=== PATIENT | female | born 2005 | race Asian ===

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

== ENCOUNTER 2025-03-15 13:44 | Outpatient (CLI) | payer OTHER, SELFPAY ==
--- NOTE | 2025-03-15 13:15 | DI.RAD_ITS ---
Exam(s) XR FINGER LT INDEX EXAM: XR FINGER LT INDEX CLINICAL HISTORY: L INDEX FINGER NODULE. TECHNIQUE: 2D digital imaging was performed. Three views. COMPARISON: None. FINDINGS: BONES: No acute fracture is present. No bony destructive lesion is seen. JOINTS: No dislocation present. The joint spaces are maintained. SOFT TISSUE: There is slight focal soft tissue swelling medial and slightly proximal to the distal in terphalangeal joint. There are no abnormal calcifications, gas or foreign body. IMPRESSION: Mild focal soft tissue swelling adjacent to the middle phalanx. DATA REPOSITORY: RADIATION DOSE DELIVERED:
== END 2025-03-15 13:45 | disposition home or self-care (01) ==
LOC: DIORS 13:44
PROVIDERS: PCP Nurse Practitioner Family; Referring Provider Nurse Practitioner Family; Visit Provider Student in an Organized Health Care Education/Training Program
DX: R22.32 Localized swelling, mass and lump, left upper limb (principal)
CPT/HCPCS: 73140

== ENCOUNTER 2025-04-09 00:29 | Outpatient (CLI) | payer OTHER, SELFPAY ==
--- NOTE | 2025-04-09 13:45 | DI.MRI_ITS ---
Exam(s) MR UPPER EXTREMITY LT WO EXAM: MR UPPER EXTREMITY LT WO CLINICAL HISTORY: pain, giant cell tumor,SUBCUTANEOUS NODULE FINGER LT HAND,R22.32 TECHNIQUE: Multiplanar multisequence MRI was performed with T1, PD fat sat, and stir sequences perfo rmed in all 3 planes. The field of view is restricted to the 2nd and 3rd fingers at and distal to the metatarsal heads. COMPARISON: CR XR FINGER LT INDEX from 07/20/2024 CR XR FINGER LT INDEX from 03/15/2025 There are no prior MRI studies of the hand for comparison. FINDINGS: MARROW:There is no normal marrow signal. No evidence of fracture, bone contusion, nor significant os seous lesions. MUSCLES/TENDONS flex or and extensor or tendons are intact with no evidence of tears nor tenosynoviti s. SOFT TISSUES: There is a well-defined encapsulated appearing oval T1 isointense to muscle/T2 hyperin tense lesion in the soft tissues immediately adjacent to the medial aspect of the proximal head of th e middle phalanx of the 2nd-index finger, this corresponding to the focus of soft tissue addition den sity on recent plain films. This measures 4.5 mm long x 2.5 mm wide x 4 mm craniocaudal and is baljinder guous with the dorsomedial aspect of the bone at this level, intimately related to the medial aspect of the extensor tendon and proximal aspect of the medial collateral ligament of the DIP joint at this level. There is evidence of adjacent intraosseous invasion nor cortical bone erosion. OTHER: There is no abnormality nor joint effusion of the DIP joint nor of the proximal interphalangea l joint. IMPRESSION: There is a well-defined encapsulated benign-appearing 4.5 x 2.5 x 4 mm oval lesion off the dorsal med ial aspect of neck level of the middle phalanx of the 2nd-index finger exhibiting signal characterist ics as above. This is intimately related to the medial aspect of the extensor tendon sheath at this level. 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 There does not appear to be evidence of adjacent bone erosion nor intraosseous invasion. DATA REPOSITORY:
== END 2025-04-09 00:49 ==
LOC: DI 00:29
PROVIDERS: PCP Nurse Practitioner Family; Visit Provider Student in an Organized Health Care Education/Training Program
DX: D21.12 Benign neoplasm of connective and other soft tissue of left upper limb, including shoulder
CPT/HCPCS: 73218